=== PATIENT | female | born 1980 | race Caucasian/White ===

== ENCOUNTER 2016-07-05 14:39 | Emergency (ER) | payer OTHER ==
[2016-07-05 14:46] VITALS: BP 121/68; PULSE 86; TEMP 98.9; BMI 24.5
[2016-07-05] MEDS ORDERED: IBUPROFEN 600 MG TABLET (FP) PO ONE ×2 (15:56→16:06)
--- NOTE | 2016-07-05 16:20 | PDOC ---
History of Present Illness - General Chief Complaint: Respiratory Stated Complaint: FEVER Time Seen by Provider: 07/05/16 15:34 History Source: Patient Exam Limitations: No Limitations - History of Present Illness Initial Comments: 07/05/16 16:14 35 yr female with sore throat for 3-4 days . Pt states she had chills and fever 2 days ago. Pt denies cough , c/o sinus discharge, nasal congestion. Pt states sick contacts, mother in law with similair symptoms. Severity: reports: mild Past History - Past Medical History Allergies/Adverse Reactions: Allergies Allergy/AdvReac Type Severity Reaction Status Date / Time No Known Drug Allergies Allergy Verified 07/05/16 14:46 Home Medications: Ambulatory Orders Fluticasone Prop 0.05% Nasal [Flonase -] 1 - 2 spray NS DAILY #1 spray.pump Oseltamivir Phosphate [Tamiflu -] 75 mg PO BID #10 capsule 07/05/16 Anemia: No Asthma: No Cancer: No Cardiac Disorders: No CVA: No COPD: No CHF: No Dementia: No Diabetes: No GI Disorders: No Disorders: No HTN: No Hypercholesterolemia: No Liver Disease: No Seizures: No Thyroid Disease: No Other medical history: denies - Surgical History Appendectomy: Yes - Psycho/Social/Smoking Cessation Hx Anxiety: No Suicidal Ideation: No Smoking History: Never smoked Have you smoked in the past 12 months: No Information on smoking cessation initiated: No Hx Alcohol Use: No Drug/Substance Use Hx: No Substance Use Type: None Hx Substance Use Treatment: No Respiratory Specific PMHX - Complaint Specific PMHX Angina: No Bronchitis: No Pneumonia: No Pulmonary Embolus: No TB (Tuberculosis): No Review of Systems - Review of Systems Able to Perform ROS?: Yes Is the patient limited American proficient: No Constitutional: No: Symptoms Reported HEENTM: Yes: Symptoms Reported, Nose Congestion, Throat Pain Respiratory: No: Symptoms reported, Cough Cardiac (ROS): No: Symptoms Reported ABD/GI: No: Symptoms Reported : No: Symptoms Reported Musculoskeletal: No: Symptoms Reported Integumentary: No: Symptoms Reported Neurological: No: Symptoms reported *Physical Exam - Vital Signs Last Vital Signs Temp Pulse Resp BP Pulse Ox 98.9 F 86 18 121/68 98 07/05/16 14:45 07/05/16 14:45 07/05/16 14:45 07/05/16 14:45 07/05/16 14:45 - Physical Exam General Appearance: Yes: Nourished HEENT: positive: EOMI, NANDA, Normal Voice, Pharyngeal Erythema, Nasal Congestion Neck: positive: Supple Respiratory/Chest: positive: Lungs Clear, Normal Breath Sounds. negative: Chest Tender Cardiovascular: positive: Regular Rhythm, Regular Rate Gastrointestinal/Abdominal: positive: Normal Bowel Sounds, Soft Musculoskeletal: positive: Normal Inspection Extremity: positive: Normal Capillary Refill, Normal Inspection, Normal Range of Motion Integumentary: positive: Normal Color, Dry, Warm Neurologic: positive: Fully Oriented, Alert, Normal Mood/Affect, Normal Response , Motor Strength 08/22 ED Treatment Course - Medications Given in the ED: ED Medications Discontinued Medications Generic Name Dose Route Start Last Admin Trade Name Freq PRN Reason Stop Dose Admin Ibuprofen 600 mg 07/05/16 15:56 07/05/16 16:06 Motrin - PO 07/05/16 15:57 600 mg ONCE ONE Administration Medical Decision Making - Medical Decision Making 07/05/16 16:16 cc: sore throat, nasal congestion with discharge fever and chills 2 days ago mother in law with positive flu will treat for flu and nasal /sinus congestion 07/05/16 17:32 *DC/Admit/Observation/Transfer Diagnosis at time of Disposition: Sinus congestion - Discharge Dispostion Disposition: HOME Condition at time of disposition: Good - Prescriptions Prescriptions: Fluticasone Prop 0.05% Nasal [Flonase -] 1 - 2 spray NS DAILY #1 spray.pump Oseltamivir Phosphate [Tamiflu -] 75 mg PO BID #10 capsule - Referrals Referrals: Denny Schaffer MD [Staff Physician] - - Patient Instructions Additional Instructions: drink pleanty if fluids to stay hydrated take the Tamiflu as directed use the floinase nasal spray as directed take motrin as directed every 6hrs for pain or fever follow with ENT if symptoms worsen or persist
== END 2016-07-05 16:52 | disposition home or self-care (01) ==
LOC: JERFT 14:39
DX: J32.8 Other chronic sinusitis (principal)
CPT/HCPCS: 87070; 87430; 99281-25

== ENCOUNTER 2016-09-22 14:56 | Emergency (ER) | payer OTHER ==
--- NOTE | 2016-09-22 15:28 | PDOC ---
Rapid Medical Evaluation Chief Complaint: Rash Time Seen by Provider: 09/22/16 15:25 Medical Evaluation: Allergies Allergy/AdvReac Type Severity Reaction Status Date / Time No Known Drug Allergies Allergy Verified 07/05/16 14:46 09/22/16 15:27 I have performed a brief in-person evaluation of this patient. The patient presents with a chief complaint of:painful lumps in the scalp Pertinent physical exam findings:lumps in scalp I have ordered the following:none The patient will proceed to the ED for further evaluation.
[2016-09-22 15:29] VITALS: BP 115/85; PULSE 73; TEMP 98.4; BMI 24.5
[2016-09-22] MEDS ORDERED: SULFAMETHOXAZOLE/TRIMETHOPRIM 800MG/160MG D.S. TABLET PO ONE (16:18)
--- NOTE | 2016-09-22 16:22 | PDOC ---
History of Present Illness - General Chief Complaint: Rash Stated Complaint: HEAD PAIN Time Seen by Provider: 09/22/16 15:25 History Source: Patient Exam Limitations: No Limitations - History of Present Illness Initial Comments: 09/22/16 16:16 Patient states status post wedding and going to [employer] one week ago , had onset of swelling and tenderness to her scalp in 2-3 different places. States looked and noted a small pimple where he squeezed and release some purulent drainage. But states had 2 more of these lesions erupt since then. Patient denies fever, denies any history of swellings or abscess. No one at home is sick, has not used any medication for relief. Timing/Duration: reports: changing over time Severity: Yes: mild Location: reports: scalp Respiratory Risk Factors: reports: no cause identified Past History - Travel Traveled outside of the country in the last 30 days: No Close contact w/someone who was outside of country & ill: No - Past Medical History Allergies/Adverse Reactions: Allergies Allergy/AdvReac Type Severity Reaction Status Date / Time No Known Drug Allergies Allergy Verified 07/05/16 14:46 Home Medications: Ambulatory Orders Fluticasone Prop 0.05% Nasal [Flonase -] 1 - 2 spray NS DAILY #1 spray.pump Oseltamivir Phosphate [Tamiflu -] 75 mg PO BID #10 capsule 07/05/16 Sulfamethoxazole/Trimethoprim [Bactrim *Ds*] 1 each PO BID #14 tablet 09/22/16 Anemia: No Asthma: No Cancer: No Cardiac Disorders: No CVA: No COPD: No CHF: No Dementia: No Diabetes: No GI Disorders: No Disorders: No HTN: No Hypercholesterolemia: No Liver Disease: No Seizures: No Thyroid Disease: No - Surgical History Appendectomy: Yes - Psycho/Social/Smoking Cessation Hx Anxiety: No Suicidal Ideation: No Smoking History: Never smoked Have you smoked in the past 12 months: No Hx Alcohol Use: No Drug/Substance Use Hx: No Substance Use Type: None Hx Substance Use Treatment: No Review of Systems - Review of Systems Able to Perform ROS?: Yes Is the patient limited [place] proficient: Yes Constitutional: Yes: Symptoms Reported, See HPI, Malaise Respiratory: No: Symptoms reported Integumentary: Yes: Symptoms Reported, Lesions, Lumps Neurological: Yes: See HPI, Headache. No: Symptoms reported All Other Systems: Reviewed and Negative *Physical Exam - Vital Signs Last Vital Signs Temp Pulse Resp BP Pulse Ox 98.4 F 73 18 115/85 98 09/22/16 15:25 09/22/16 15:25 09/22/16 15:25 09/22/16 15:25 09/22/16 15:25 - Physical Exam General Appearance: Yes: Nourished, Appropriately Dressed. No: Apparent Distress HEENT: positive: EOMI, NANDA, Normal ENT Inspection, TMs Normal, Other (scalp: mild erythema noted with 2 healing lesions and one pointing lesion with a purulent. That was lifted and expressed a minute amount of drainage.) Neck: positive: Supple. negative: Tender, Lymphadenopathy (R), Lymphadenopathy (L) Extremity: positive: Normal Capillary Refill, Normal Range of Motion Integumentary: positive: Normal Color, Dry, Warm Neurologic: positive: smash piecer II-XII NML intact, Fully Oriented, Alert, Normal Mood/ Affect, Motor Strength 5/5 Progress Note - Progress Note Progress Note: Mild scalp cellulitis, will start on Bactrim to avoid further spread and cover possible MRSA contamination *DC/Admit/Observation/Transfer Diagnosis at time of Disposition: Abscess or cellulitis of scalp - Discharge Dispostion Disposition: HOME Condition at time of disposition: Stable Admit: No - Patient Instructions Printed Discharge Instructions: DI for Cellulitis -- Adult Additional Instructions: Hot soaks to lesions as much as possible to allow continued drainage May apply bacitracin or antibiotic ointment and to continue to allow drainage Bactrim 1 tablet every 12 hours for one week May use Tylenol or Motrin for pain relief Up with PCP for wound check in 1-2 days Return to emergency department for worsening swelling, pain, fevers, other eruptions. - Post Discharge Activity Work/School Note: Back to Work
[2016-09-22] MEDS ORDERED: SULFAMETHOXAZOLE/TRIMETHOPRIM 800MG/160MG D.S. TABLET ONE (16:25)
== END 2016-09-22 16:45 | disposition home or self-care (01) ==
LOC: JERFT 14:56
DX: L03.811 Cellulitis of head [any part, except face] (principal)
CPT/HCPCS: 99281-25

== ENCOUNTER 2016-09-25 13:36 | Emergency (ER) | payer OTHER ==
[2016-09-25 13:42] VITALS: BP 119/63; PULSE 88; TEMP 98.2; BMI 24.5
--- NOTE | 2016-09-25 14:40 | PDOC ---
History of Present Illness - General Chief Complaint: Rash Stated Complaint: FOLLOW-UP Time Seen by Provider: 09/25/16 14:26 History Source: Patient Exam Limitations: No Limitations - History of Present Illness Initial Comments: CHIEF COMPLAINT: 36 y/o afebrile female seen here 3 days ago with scalp cellulitis here today for follow up. HISTORY OF PRESENT ILLNESS: The patient states she is concerned that the area is getting bigger, it still hurts and she has a swollen bump on the left side of her neck. She denies fever, chills, drainage from wound, streaking. She is not taking anything for pain. It was suggested she apply hot compresses to the area but she has not done so. Vital signs on arrival are within normal limits. REVIEW OF SYSTEMS: GENERAL/CONSTITUTIONAL: No fever/chills. No weakness. No weight change. HEAD, EYES, EARS, NOSE AND THROAT: +painful bump to back of head. +bump on left side of neck. No change in vision. No ear pain or discharge. No sore throat. CARDIOVASCULAR: No chest pain or shortness of breath. RESPIRATORY: No cough, wheezing, or hemoptysis. SKIN: No rash or easy bruising. NEUROLOGIC: No headache, vertigo, loss of consciousness, or loss of sensation. PHYSICAL EXAM: GENERAL: The patient is awake, alert, and fully oriented, in no acute distress. She is well appearing and ambulatory HEAD: Small, scabbed over, non-fluctuant abscess to left occipital region without surrounding erythema or edema. NECK: Tender posterior left cervical lymph node. EYES: Pupils equal, round and reactive to light, extraocular movements intact, sclera anicteric, conjunctiva clear. EXTREMITIES: Normal range of motion, no edema. NEUROLOGICAL: Normal speech, normal gait. SKIN: Warm, Dry, normal turgor, no rashes or lesions noted. Past History - Past Medical History Allergies/Adverse Reactions: Allergies Allergy/AdvReac Type Severity Reaction Status Date / Time No Known Drug Allergies Allergy Verified 09/25/16 13:41 Home Medications: Ambulatory Orders Cephalexin Monohydrate [Keflex -] 500 mg PO BID #14 capsule 09/25/16 Anemia: No Asthma: No Cancer: No Cardiac Disorders: No CVA: No COPD: No CHF: No Dementia: No Diabetes: No GI Disorders: No Disorders: No HTN: No Hypercholesterolemia: No Liver Disease: No Seizures: No Thyroid Disease: No Other medical history: denies - Surgical History Appendectomy: Yes - Psycho/Social/Smoking Cessation Hx Anxiety: No Suicidal Ideation: No Smoking History: Never smoked Have you smoked in the past 12 months: No Information on smoking cessation initiated: No Hx Alcohol Use: No Drug/Substance Use Hx: No Substance Use Type: None Hx Substance Use Treatment: No *Physical Exam - Vital Signs Last Vital Signs Temp Pulse Resp BP Pulse Ox 98.2 F 88 17 119/63 98 09/25/16 13:39 09/25/16 13:39 09/25/16 13:39 09/25/16 13:39 09/25/16 13:39 Medical Decision Making - Medical Decision Making A/P: 36 y/o female with healing wound on her scalp without signs of infection. Plan is to send RX for keflex for her to take along with bactrim to cover strep. Instructed her again to apply hot compresses multiple times per day and take Motrin for pain 3 times per day. Pt instructed to return to the ER with any worsening or concerning symptoms. The patient verbalizes understanding of all instructions, has no further questions and is awaiting discharge. *DC/Admit/Observation/Transfer Diagnosis at time of Disposition: Abscess or cellulitis of scalp - Discharge Dispostion Disposition: HOME Condition at time of disposition: Good - Prescriptions Prescriptions: Cephalexin Monohydrate [Keflex -] 500 mg PO BID #14 capsule - Patient Instructions Printed Discharge Instructions: DI for Cellulitis -- Adult Additional Instructions: Discharge Instructions: -Another prescription for an antibiotic has been sent to your pharmacy; Please take it ALONG WITH the other antibiotic you area already taking -Apply hot rags to the affected area at least 3 times per day -Gently wash your hair as needed -Return to the ER with any worsening or concerning symptoms
== END 2016-09-25 15:09 | disposition home or self-care (01) ==
LOC: JERFT 13:36
DX: L03.811 Cellulitis of head [any part, except face] (principal)
CPT/HCPCS: 99281-25

== ENCOUNTER 2023-01-07 14:57 | Emergency (ER) | payer OTHER ==
[2023-01-07 15:08] VITALS: BP 114/62; PULSE 95; RESP 14; TEMP 98.2; BMI 24.7
[2023-01-07] MEDS ORDERED: IBUPROFEN 600 MG TABLET (FP) PO ONE ×2 (17:04→17:16)
== END 2023-01-07 18:15 | disposition home or self-care (01) ==
LOC: JERFT 14:57
CPT/HCPCS: 72100-TC-FY